=== PATIENT | male | born 1995 ===

== ENCOUNTER 2016-12-26 08:42 | Emergency (ER) | payer MEDICAID, OTHER ==
[2016-12-26 09:14] VITALS: BP 124/80; PULSE 73; RESP 18; TEMP 98.8; O2SAT 97; BMI 36.5
--- NOTE | 2016-12-26 09:51 | ED PDOC ---
Arrival/HPI - General Historian: Patient - General Chief Complaint: Headache Time Seen by Provider: 12/26/16 08:54 - History of Present Illness Narrative History of Present Illness (Text): 12/26/16 09:46 21yo male present with complaint of headache x one week (although triage note states 2days). He notes previous history of similar headache in the past. states headache is usually "throbbing" in nature, localized to his right sided temporal area. States the headache is currently very mild. He reports that his headache usually resolve with Motrin, but he did not take it for the past one week. He states he didn't go to work today so he came to ED for doctor's note. He denies nausea, vomiting, focal weakness, aphasia, dysathria, photophobia, trauma, any other complaint. (Justen Campbell A) Past Medical History - Provider Review Nursing Documentation Reviewed: Yes - Tetanus Immunization Tetanus Immunization: Unknown - Psychiatric Hx Depression: No Hx Emotional Abuse: No Hx Physical Abuse: No Hx Substance Use: No - Suicidal Assessment Feels Threatened In Home Enviroment: No Family/Social History - Physician Review Nursing Documentation Reviewed: Yes Family/Social History: Unknown Family HX Smoking Status: Former Smoker Hx Alcohol Use: No Hx Substance Use: No Hx Substance Use Treatment: No Allergies/Home Meds Allergies/Adverse Reactions: Allergies No Known Allergies Allergy (Verified 12/26/16 09:14) Home Medications: Home Meds Medication Instructions Recorded Confirmed No Known Home Med 12/26/16 12/26/16 Review of Systems - Physician Review All systems were reviewed & negative as marked: Yes - Review of Systems Constitutional: Normal Eyes: Normal ENT: Normal Respiratory: Normal Cardiovascular: Normal Gastrointestinal: Normal Genitourinary Male: Normal Musculoskeletal: Normal Skin: Normal Neurological: Headache. absent: Dizziness, Focal Weakness, Gait Changes, Speech Changes, Facial Droop Endocrine: Normal Hemo/Lymphatic: Normal Psychiatric: Normal Physical Exam Vital Signs Reviewed: Yes Temperature: Afebrile Blood Pressure: Normal Pulse: Regular Respiratory Rate: Normal Appearance: Positive for: Well-Appearing, Non-Toxic, Comfortable Pain Distress: None Mental Status: Positive for: Alert and Oriented X 3 - Systems Exam Head: Present: Atraumatic, Normocephalic Pupils: Present: PERRL Extroacular Muscles: Present: EOMI Conjunctiva: Present: Normal Mouth: Present: Moist Mucous Membranes Neck: Present: Normal Range of Motion Respiratory/Chest: Present: Clear to Auscultation, Good Air Exchange. No: Respiratory Distress, Accessory Muscle Use Cardiovascular: Present: Regular Rate and Rhythm, Normal S1, S2. No: Murmurs Abdomen: Present: Normal Bowel Sounds. No: Tenderness, Distention, Peritoneal Signs Back: Present: Normal Inspection Upper Extremity: Present: Normal Inspection. No: Cyanosis, Edema Lower Extremity: Present: Normal Inspection. No: Edema Neurological: Present: GCS=15, CN II-XII Intact, Speech Normal, Motor Func Grossly Intact, Normal Sensory Function, Normal Cerebellar Funct, Norm Deep Tendon Reflexes, Gait Normal, Memory Normal, Normal 2Pt Descrimination, Other ( No focal neurological deficit) Skin: Present: Warm, Dry, Normal Color. No: Rashes Psychiatric: Present: Alert, Oriented x 3, Normal Insight, Normal Concentration Medical Decision Making ED Course and Treatment: 12/26/16 09:55 Pt presented for stated. He was neurological intact. Ambulatory and hemodynamically stable. He notes that his headache improved while in ED and also report history of similar headache. No imaging is needed at this time. Pt was DC home , referred to his PMd/specialist and advised TRT ED for any new or worsening symptoms. He expressed understanding of the instructions. (Justen Campbell) I was available for consultation during PA evaluation. The chart was reviewed by me, and I agree with disposition. The documented history was done by the physician military police officer. The documented physical exam was done by the physician military police officer. The documented procedures were done by the physician military police officer. (Candido Sharpe) - Medication Orders Current Medication Orders: Discontinued Medications Ibuprofen (Motrin Tab) 600 mg PO STAT STA Stop: 12/26/16 09:34 Last Admin: 12/26/16 09:55 Dose: 600 mg Disposition/Present on Arrival - Present on Arrival Any Indicators Present on Arrival: No History of DVT/PE: No History of Uncontrolled Diabetes: No Urinary Catheter: No History of Decub. Ulcer: No History Surgical Site Infection Following: None - Disposition Have Diagnosis and Disposition been Completed?: Yes Disposition Time: 10:00 Patient Plan: Discharge - Disposition Diagnosis: Head ache Disposition: HOME/ ROUTINE Condition: IMPROVED Discharge Instructions (ExitCare): Acute Headache (ED) Additional Instructions: Follow up with your Doctor/Neurologist Return to ED for any new or worsening symptoms Referrals: Jorge Alberto Luke MD [Staff Provider] - Follow up with primary Forms: WORK NOTE
== END 2016-12-26 10:21 | disposition home or self-care (01) ==
LOC: ED 08:42
DX: R51 Headache (principal)

== ENCOUNTER 2017-11-07 22:52 | Emergency (ER) | payer OTHER ==
[2017-11-07 22:52] VITALS: BMI 36.5
--- NOTE | 2017-11-07 23:13 | ED PDOC ---
Arrival/HPI - General Chief Complaint: Chest Pain Time Seen by Provider: 11/07/17 23:05 Historian: Patient - History of Present Illness Narrative History of Present Illness (Text): 11/07/17 23:12 Lupillo Almeida is a 21 year old male, whose past medical history includes asthma, who presents to the emergency department complaining of intermittent chest discomfort for the past 2-3 days. Patient states he sneezed while sitting in an awkward position 2-3 days prior and developed intermittent chest discomfort, but denies any pain currently. Patient denies any fever, chills, shortness of breath, abdominal pain, nausea, vomiting, back pain, neck pain, headache, dizziness, or any other complaints. Time/Duration: < week (2-3 days) Symptom Course: Unchanged Activities at Onset: Light Context: Home Past Medical History - Provider Review Nursing Documentation Reviewed: Yes - Infectious Disease Hx of Infectious Diseases: None - Tetanus Immunization Tetanus Immunization: Unknown - Psychiatric Hx Depression: No Hx Emotional Abuse: No Hx Physical Abuse: No Hx Substance Use: No - Suicidal Assessment Feels Threatened In Home Enviroment: No Family/Social History - Physician Review Nursing Documentation Reviewed: Yes Family/Social History: Unknown Family HX Smoking Status: Former Smoker Hx Alcohol Use: No Hx Substance Use: No Hx Substance Use Treatment: No Allergies/Home Meds Allergies/Adverse Reactions: Allergies No Known Allergies Allergy (Verified 12/26/16 09:14) Review of Systems - Physician Review All systems were reviewed & negative as marked: Yes - Review of Systems Constitutional: Normal. absent: Fevers Eyes: Normal ENT: Normal Respiratory: Normal. absent: SOB, Cough Cardiovascular: Chest Pain Gastrointestinal: Normal. absent: Abdominal Pain, Diarrhea, Nausea, Vomiting Genitourinary Male: Normal. absent: Dysuria, Frequency, Hematuria, Urinary Output Changes Musculoskeletal: Normal. absent: Back Pain, Neck Pain Skin: Normal. absent: Rash Neurological: Normal. absent: Headache, Dizziness Endocrine: Normal Hemo/Lymphatic: Normal Psychiatric: Normal Physical Exam Vital Signs Reviewed: Yes Temperature: Afebrile Blood Pressure: Normal Pulse: Regular Respiratory Rate: Normal Appearance: Positive for: Well-Appearing, Non-Toxic, Comfortable Pain Distress: None Mental Status: Positive for: Alert and Oriented X 3 - Systems Exam Head: Present: Atraumatic, Normocephalic Pupils: Present: PERRL Extroacular Muscles: Present: EOMI Conjunctiva: Present: Normal Mouth: Present: Moist Mucous Membranes Neck: Present: Normal Range of Motion Respiratory/Chest: Present: Clear to Auscultation, Good Air Exchange. No: Respiratory Distress, Accessory Muscle Use Cardiovascular: Present: Regular Rate and Rhythm, Normal S1, S2. No: Murmurs Abdomen: No: Tenderness, Distention, Peritoneal Signs Back: Present: Normal Inspection Upper Extremity: Present: Normal Inspection. No: Cyanosis, Edema Lower Extremity: Present: Normal Inspection. No: Edema Neurological: Present: GCS=15, CN II-XII Intact, Speech Normal Skin: Present: Warm, Dry, Normal Color. No: Rashes Psychiatric: Present: Alert, Oriented x 3, Normal Insight, Normal Concentration Medical Decision Making ED Course and Treatment: 11/07/17 23:12 Impression: 21 year old male complaining of intermittent chest discomfort for past 2-3 days. Differential Diagnosis included but are not limited to: musculoskeletal pain Plan: -- EKG -- Chest X-Ray -- Labs, cardiac enzymes -- Reassess and disposition Progress Notes: Reviewed EKG, NSR at [address]-segment elevations or depressions, no T-wave inversions, normal intervals. 11/08/17 01:30 Chest X-Ray reviewed, shows no acute processes. 11/08/17 01:45 On reevaluation the patient feels better and is in no acute distress. I have discussed the results and plan with the patient, who expresses understanding. Patient given the opportunity to ask question, all questions were answered and there is agreement with the plan to discharge the patient home. Patient is stable for discharge. Patient was instructed to follow up with physician/clinic in 1-2 days or return if symptoms persist/worsen or new concerning symptoms arise.. - Lab Interpretations Lab Results: 11/07/17 23:26 11/07/17 23:26 Lab Results 11/07/17 23:26: WBC 10.7, RBC 5.17, Hgb 15.2, Hct 42.9, MCV 83.0, MCH 29.4, MCHC 35.4, RDW 13.0, Plt Count 271, MPV 9.5 11/07/17 23:26: Sodium 141, Potassium 3.6, Chloride 102, Carbon Dioxide 26, Anion Gap 17, BUN 16, Creatinine 0.9, Est GFR ( Amer) > 60, Est GFR (Non- Af Amer) > 60, Random Glucose 150 H, Calcium 9.9, Total Bilirubin 0.7, AST 33, ALT 33, Alkaline Phosphatase 96, Lactate Dehydrogenase 454, Total Creatine Kinase 99, Troponin I < 0.01, Total Protein 8.2, Albumin 4.7, Globulin 3.5, Albumin/Globulin Ratio 1.3 11/07/17 23:26: PT 12.2, INR 1.07, APTT 30.4 I have reviewed the lab results: Yes - RAD Interpretation Radiology Orders: 11/07/17 23:18 CHEST PORTABLE [RAD] Stat Sex Worker Or Escort: ED Physician - EKG Interpretation Interpreted by ED Physician: Yes Type: 12 lead EKG - Medication Orders Current Medication Orders: Ibuprofen (Motrin Tab) 600 mg PO STAT STA Stop: 11/08/17 01:50 - Scribe Statement The provider has reviewed the documentation as recorded by the Allen Oliver Provider Scribe Attestation: All medical record entries made by the Scribe were at my direction and personally dictated by me. I have reviewed the chart and agree that the record accurately reflects my personal performance of the history, physical exam, medical decision making, and the department course for this patient. I have also personally directed, reviewed, and agree with the discharge instructions and disposition. Disposition/Present on Arrival - Present on Arrival Any Indicators Present on Arrival: No History of DVT/PE: No History of Uncontrolled Diabetes: No Urinary Catheter: No History of Decub. Ulcer: No History Surgical Site Infection Following: None - Disposition Have Diagnosis and Disposition been Completed?: Yes Diagnosis: Muscular chest pain, Muscle strain of chest wall Disposition: HOME/ ROUTINE Disposition Time: 01:47 Patient Plan: Discharge Patient Problems: Current Active Problems Problem Status Onset Muscle strain of chest wall Acute Muscular chest pain Acute Condition: GOOD Discharge Instructions (ExitCare): Muscle Strain (DC), Chest Pain (DC), Chest Pain (ED) Additional Instructions: Rest/no strenuous physical activity/take meds as prescribed/follow up with your doctor this week Prescriptions: Naproxen [Naprosyn] 500 mg PO BID PRN #14 tab PRN Reason: Pain Forms: [facility] (Mont[place]grin), WORK NOTE
[2017-11-07 23:39] LABS: HEMOGLOBIN 15.2 g/dL (14.0-18.0); MEAN CORPUSCULAR HEMOGLOBIN 29.4 pg (25.0-35.0); MEAN CORPUSCULAR HGB CONC 35.4 g/dl (31.0-37.0); MEAN PLATELET VOLUME 9.5 fl (7.0-11.0); RBC 5.17 10^6/uL (3.5-6.1); WHITE BLOOD COUNT 10.7 10^3/ul (4.5-11.0)
[2017-11-07 23:46] LABS: INR 1.07 (0.93-1.08); PARTIAL THROMBOPLASTIN TIME 30.4 Seconds (25.1-36.5); PROTHROMBIN TIME 12.2 SECONDS (9.4-12.5)
[2017-11-08 00:05] LABS: ALB/GLOB RATIO 1.3 (1.1-1.8); ALBUMIN 4.7 g/dL (3.0-4.8); ALT/SGPT 33 U/L (7-56); AST/SGOT 33 U/L (17-59); BLOOD UREA NITROGEN 16 mg/dL (7-21); CALCIUM 9.9 mg/dL (8.4-10.5); GFR AFRICAN-AMERICAN > 60; GFR NON-AFRICAN AMERICAN > 60
[2017-11-08 00:15] LABS: TROPONIN I < 0.01 ng/mL
[2017-11-08 02:25] VITALS: BP 130/84; PULSE 90; RESP 18; TEMP 98.7; O2SAT 100
--- NOTE | 2017-11-08 09:34 | RAD ---
HISTORY: fever COMPARISON: No prior. FINDINGS: LUNGS: The lungs are well inflated and clear. PLEURA: No significant pleural effusion identified, no pneumothorax apparent. CARDIOVASCULAR: Normal. OSSEOUS STRUCTURES: No significant abnormalities. VISUALIZED UPPER ABDOMEN: Normal. OTHER FINDINGS: None. IMPRESSION: No active pulmonary disease.
--- NOTE | 2017-11-08 14:38 | CARD ---
APPROVED REPORT EKG Measurement Heart [id number] <Conclusion> Normal sinus rhythm Normal ECG
== END 2017-11-08 02:07 | disposition home or self-care (01) ==
LOC: ED 22:52
DX: S29.011A Strain of muscle and tendon of front wall of thorax, initial encounter (principal); X58.XXXA Exposure to other specified factors, initial encounter; R07.89 Other chest pain; Z87.891 Personal history of nicotine dependence